=== PATIENT | female | born 1960 | race Caucasian/White ===

== ENCOUNTER 2019-11-01 07:18 | Outpatient (CLI) | payer BC, SELFPAY ==
[2019-11-01 07:37] LABS: Add Urine Microscopic? YES; Appearance Urine Clear (Clear); Basophils Absolute Auto 0.04 K/mm3 (0.00-0.10); Basophils Percent Auto 0.8 % (0.0-1.0); Bilirubin Urine Negative (Negative); Blood Urine Negative (Negative); Color Urine Yellow (Yellow); Glucose Urine UA Negative (Negative); Hematocrit 42.2 % (35.0-49.0); Hemoglobin 13.9 g/dL (12.0-15.0); Immature Granulocyte Absolute 0.01 K/mm3 (0.00-0.00); Immature Granulocyte Percent A 0.2 % (0.0-0.0); Ketones Urine Negative (Negative); Leukocyte Esterase Ur 1+ LEU/UL (Negative); Lymphocytes Absolute Auto 1.95 K/mm3 (1.10-4.50); Lymphocytes Percent Auto 38.1 % (18.0-42.0); Mean Corpuscular HGB Conc 32.9 g/dL (32.0-36.0); Mean Corpuscular Hemoglobin 30.8 pg (27.0-31.0); Mean Corpuscular Volume 93.4 fL (78.0-102.0); Mean Platelet Volume 9.7 fl (9.2-11.8); Monocytes Absolute Auto 0.51 K/mm3 (0.10-0.90); Neutrophils Absolute Auto 2.5 K/mm3 (1.7-7.2); Neutrophils Percent Auto 48.9 % (50.0-70.0); Nitrate Urine Negative (Negative); Platelet Count Result 239 K/mm3 (150-420); Protein Urine Negative (Negative); Red Blood Count 4.52 M/mm3 (4.20-5.40); Red Cell Distribution Width 12.6 % (11.6-14.4); Specific Grav Ur 1.015 (1.010-1.020); Urobilinogen Urine 0.2 mg/dL (0.2-1.0); White Blood Count 5.1 K/mm3 (4.8-10.8); pH Urine 6.5 (5.0-8.0)
[2019-11-01 07:47] LABS: Bacteria Urine None seen /hpf; RBC Urine 0-2 /hpf (0-2); Squamous Epithelial Cell Urine Occasional /hpf (Few)
[2019-11-01 08:35] LABS: Alanine Aminotransferase 20 U/L (14-59); Alkaline Phosphatase 64 U/L (46-116); Anion Gap 11.4 mmol/L (7-16); Aspartate Amino Transferase 19 U/L (15-37); Bilirubin,Total 0.5 mg/dL (0.00-1.00); Blood Urea Nitrogen 22 mg/dL (7-18); Carbon Dioxide 28 mmol/L (21-32); Chloride 104 mmol/L (98-108); Cholesterol 214 mg/dL (0-200); Estimated Glomerular Filt Rate 56; Glucose 95 mg/dL (70-99); HDL Direct 58 mg/dL (40-60); LDL Cholesterol Calculated 140 mg/dL (<130); Osmolality Calculated 291 mOsm/kg (285-295); Potassium 4.4 mmol/L (3.5-5.1); Sodium 139 mmol/L (136-145); Total Protein 6.8 g/dL (6.4-8.2); Triglycerides 79 mg/dL (0-150)
== END 2019-11-01 07:19 | disposition home or self-care (01) ==
PROVIDERS: PCP Internal Medicine; Visit Provider Internal Medicine
DX: E78.5 Hyperlipidemia, unspecified (principal); I10 Essential (primary) hypertension; E03.9 Hypothyroidism, unspecified; R82.90 Unspecified abnormal findings in urine
CPT/HCPCS: 36415; 80053; 80061; 81001; 84443; 85025; 87086

== ENCOUNTER 2020-03-06 16:31 | Outpatient (CLI) | payer BC, SELFPAY ==
[2020-03-06 17:28] LABS: SARS-CoV-2 Ag Negative (Negative)
== END 2020-03-06 16:32 | disposition home or self-care (01) ==
LOC: CHSLAB 16:34
PROVIDERS: PCP Internal Medicine; Visit Provider Internal Medicine
DX: Z20.828 Contact with and (suspected) exposure to other viral communicable diseases (principal)
CPT/HCPCS: 87426

== ENCOUNTER 2020-11-01 07:44 | Outpatient (CLI) | payer BC, SELFPAY ==
[2020-11-01 08:00] LABS: Basophils Absolute Auto 0.05 K/mm3 (0.00-0.10); Basophils Percent Auto 0.9 % (0.0-1.0); Eosinophils Absolute Auto 0.12 K/mm3 (0.02-0.50); Eosinophils Percent Auto 2.1 % (1.0-6.0); Hematocrit 44.3 % (35.0-49.0); Hemoglobin 14.2 g/dL (12.0-15.0); Lymphocytes Absolute Auto 2.37 K/mm3 (1.10-4.50); Lymphocytes Percent Auto 41.5 % (18.0-42.0); Mean Corpuscular HGB Conc 32.1 g/dL (32.0-36.0); Mean Corpuscular Hemoglobin 30.1 pg (27.0-31.0); Mean Corpuscular Volume 94.1 fL (78.0-102.0); Mean Platelet Volume 9.3 fl (9.2-11.8); Monocytes Absolute Auto 0.46 K/mm3 (0.10-0.90); Monocytes Percent Auto 8.1 % (2.0-11.0); Neutrophils Absolute Auto 2.7 K/mm3 (1.7-7.2); Neutrophils Percent Auto 47.4 % (50.0-70.0); Platelet Count Result 278 K/mm3 (150-420); Red Blood Count 4.71 M/mm3 (4.20-5.40); Red Cell Distribution Width 13.2 % (11.6-14.4); White Blood Count 5.7 K/mm3 (4.8-10.8)
[2020-11-01 08:53] LABS: Alanine Aminotransferase 27 U/L (14-59); Albumin Level 3.9 g/dL (3.4-5.0); Alkaline Phosphatase 64 U/L (46-116); Anion Gap 8 mmol/L (8-16); Aspartate Amino Transferase 18 U/L (15-37); Bilirubin,Total 0.4 mg/dL (0.00-1.00); Blood Urea Nitrogen 23 mg/dL (7-18); Calcium 8.9 mg/dL (8.5-10.1); Carbon Dioxide 28 mmol/L (21-32); Chloride 108 mmol/L (98-108); Cholesterol 215 mg/dL (0-200); Estimated Glomerular Filt Rate > 60; Glucose 91 mg/dL (70-99); HDL Direct 59 mg/dL (40-60); LDL Cholesterol Calculated 135 mg/dL (<130); Osmolality Calculated 301 mOsm/kg (285-295); Potassium 4.5 mmol/L (3.5-5.1); Sodium 144 mmol/L (136-145); Thyroid Stimulating Hormone 1.57 uIU/mL (0.36-3.74); Total Protein 6.6 g/dL (6.4-8.2); Triglycerides 105 mg/dL (0-150)
== END 2020-11-01 07:45 | disposition home or self-care (01) ==
LOC: CHSLAB 07:46
PROVIDERS: PCP Internal Medicine; Visit Provider Internal Medicine
DX: Z00.00 Encounter for general adult medical examination without abnormal findings (principal)
CPT/HCPCS: 36415; 80053; 80061; 84443; 85025

== ENCOUNTER 2020-11-15 15:53 | Outpatient (NON) | payer BC, SELFPAY ==
[2020-11-15 16:53] LABS: Add Urine Microscopic? YES; Appearance Urine Clear (Clear); Bilirubin Urine Negative (Negative); Blood Urine Negative (Negative); Color Urine Light Yellow (Yellow); Glucose Urine UA Negative (Negative); Ketones Urine Negative (Negative); Leukocyte Esterase Ur 1+ (Negative); Nitrate Urine Negative (Negative); Protein Urine Negative (Negative); Urobilinogen Urine 0.2 mg/dL (0.2-1.0); pH Urine 6.5 (5.0-8.0)
[2020-11-15 16:58] LABS: Bacteria Urine Trace /hpf; RBC Urine None seen /hpf (0-2); Squamous Epithelial Cell Urine Rare /hpf (Few)
== END 2020-11-15 15:54 | disposition home or self-care (01) ==
LOC: CHSLAB 15:55
PROVIDERS: PCP Internal Medicine; Visit Provider Internal Medicine
DX: Z00.00 Encounter for general adult medical examination without abnormal findings (principal)
CPT/HCPCS: 81001

== ENCOUNTER 2021-11-11 10:36 | Outpatient (CLI) | payer BC, SELFPAY ==
[2021-11-11 11:29] LABS: SARS-CoV-2 RNA PCR Negative (Negative)
== END 2021-11-11 10:37 | disposition home or self-care (01) ==
LOC: CHSLAB 10:38
PROVIDERS: PCP Internal Medicine; Visit Provider Internal Medicine
DX: J06.9 Acute upper respiratory infection, unspecified (principal); Z20.822 Contact with and (suspected) exposure to COVID-19
CPT/HCPCS: C9803; U0003; U0005

== ENCOUNTER 2021-12-31 16:37 | Outpatient (CLI) | payer BC, SELFPAY ==
[2021-12-31 18:06] LABS: SARS-CoV-2 RNA PCR Negative (Negative)
== END 2021-12-31 16:38 | disposition home or self-care (01) ==
LOC: CHSLAB 16:41
PROVIDERS: PCP Internal Medicine; Visit Provider Internal Medicine
DX: Z20.822 Contact with and (suspected) exposure to COVID-19 (principal)
CPT/HCPCS: C9803; U0003; U0005

== ENCOUNTER 2022-02-18 08:24 | Emergency (ER) | payer BC, SELFPAY ==
[2022-02-18 08:25] VITALS: BP 138/94; PULSE 96; RESP 20; TEMP 37.1; O2SAT 99
[2022-02-18] MEDS: ONDANSETRON INJ 4 MG/2 ML VIAL IV PUSH (08:30)
--- NOTE | 2022-02-18 08:35 | ED.DIZZY ---
HPI - Dizziness General Chief Complaint: Dizziness Stated Complaint: AMBULANCE Time Seen by Provider: 02/18/22 08:34 Source: patient, EMS and RN notes reviewed Mode of arrival: EMS History of Present Illness MD elicited complaint: dizziness Onset (ago): hour(s) (2) Timing: sudden onset Severity: moderate Description: room spinning Context: change in body position History of similar symptoms: No Exacerbating factors: movement/ambulation and change in body position Relieving factors: remaining still Associated symptoms: nausea Related Data Home Medications Medication Instructions Recorded Confirmed levothyroxine 100 mcg tablet 100 mcg PO DAILY 02/18/22 02/18/22 mirtazapine 15 mg tablet 15 mg PO PRN PRN Anxiety 02/18/22 02/18/22 verapamil 120 mg tablet,extended 120 mg PO DAILY 02/18/22 02/18/22 release Allergies Allergy/AdvReac Type Severity Reaction Status Date / Time meperidine AdvReac Severe N/V Verified 03/13/15 10:48 Review of Systems Review of Systems: All systems reviewed & are unremarkable except as noted in HPI and below PMFSH Past Medical History Medical History (Updated 02/18/22 @ 09:45 by Sohan Jain MD) Anxiety Hypertension Hypothyroidism Surgical History Surgical History (Updated 02/18/22 @ 08:40 by Sohan Jain MD) History of ankle surgery History of section History of thyroid surgery Social History Social History (Updated 02/18/22 @ 08:40 by Sohan Jain MD) Smoking status: Never smoker Exam Const: General: healthy appearing, no acute distress and alert Nutritional Appearance: well nourished Orientation/consciousness: patient oriented x3 Limitations: no limitations HENMT: Head: normal to inspection Face/Nose/Sinus: Normal external nose present Face and sinus: normal facial exam Eyes: Conjunctivae: conjunctivae normal Pupils: Equal, round and reactive pupils present EOM: EOMs intact bilaterally Neck: Neck: normal visual inspection Resp: Effort & Inspection: normal respiratory effort Auscultation: clear to auscultation bilaterally Cardio: Rate: regular rate Rhythm: regular rhythm GI: GI Palp: Yes Soft to palpation and No Tenderness to palpation present (GI) Auscultation: normal bowel sounds Back/Spine/Pelvis: Cervical Spine: cervical ROM normal Thoracic/Lumbar Spine: thoraco-lumbar ROM normal Skin: General skin exam: normal color Wounds: no wounds Neuro: General: patient oriented x3, moves all extremities, no focal motor deficits and CN's II-XI intact bilaterally Speech: normal speech Gait exam (Neuro): Normal gait present Extrem: General: normal to inspection and no clubbing, cyanosis or edema Psych: Mental Status: mental status grossly normal Affect: normal affect Attitude: cooperative Course Course Emergency Course: Nausea is gone with Zofran and the dizziness is significantly improved with meclizine. Discharge Plan Discharge Clinical Impression: Benign paroxysmal positional vertigo Qualifiers: Laterality: unspecified laterality Qualified Code(s): H81.10 - Benign paroxysmal vertigo, unspecified ear Patient Disposition: Home, Self-Care Condition: Improved Instructions: Benign Paroxysmal Positional Vertigo (ED) Prescriptions: New meclizine 25 mg tablet 25 mg PO TID PRN (Reason: dizziness) Qty: 30 0RF ondansetron HCl 4 mg tablet 4 mg PO DAILY PRN (Reason: nausea and vomiting) Qty: 10 0RF No Action verapamil 120 mg tablet extended release 120 mg PO DAILY levothyroxine 100 mcg tablet 100 mcg PO DAILY mirtazapine 15 mg tablet 15 mg PO PRN PRN (Reason: Anxiety) Follow-up/Referrals: Angel Weeks MD [Primary Care Provider] - Time of Disposition: 09:46
[2022-02-18] MEDS: MECLIZINE HCL 25 MG TABLET PO (08:39)
[2022-02-18 10:00] VITALS: BP 150/89; PULSE 98; RESP 18; TEMP 36.9; O2SAT 98
== END 2022-02-18 10:10 | disposition home or self-care (01) ==
PROVIDERS: Emergency Provider Emergency Medicine; PCP Internal Medicine
DX: H81.10 Benign paroxysmal vertigo, unspecified ear (principal)
CPT/HCPCS: 96374; 99284; A9270; J2405

== ENCOUNTER 2022-02-24 16:24 | Emergency (ER) | payer BC, SELFPAY ==
--- NOTE | ~2022-02-24 | CT_ITS ---
EXAMINATION: CT abdomen pelvis wo con DATE: 02/24/2022 17:01 INDICATION: Blood in stool. TECHNIQUE: Computed tomography (CT) of the abdomen and pelvis was performed without intravenous contr ast. Automated exposure control and iterative reconstruction technique were employed. The dose-length product was 504.18 mGy-cm. COMPARISON: None. FINDINGS: The visualized portions of the lung bases demonstrate mild atelectasis. No pleural effusion . The heart size is normal. No pericardial effusion. The liver, gallbladder, spleen, pancreas, adrena l glands, and kidneys are normal. There is no urolithiasis. There is fat stranding and wall thickenin g at the splenic flexure of the colon, consistent with colitis. The appendix is normal. There are no dilated loops of bowel. There are no pathologically enlarged lymph nodes. There is no free intraperit gray fluid. There is moderate lower lumbar spondylosis. IMPRESSION: 1. Colitis at the splenic flexure of the colon. Reviewed, dictated and finalized at location A. [employer]
[2022-02-24 16:25] VITALS: BP 184/97; PULSE 104; RESP 18; TEMP 37; O2SAT 98
--- NOTE | 2022-02-24 16:50 | ED.ABDPAIN ---
HPI - Abdominal Pain General Chief Complaint: Abdominal Pain Stated Complaint: Dr Weeks sent pt over she has Black Stool Time Seen by Provider: 02/24/22 16:26 Source: patient and RN notes reviewed Mode of arrival: ambulatory Limitations: no limitations History of Present Illness HPI narrative: pt has no acute sxs except the dark stool passage x 4 days. Pertinent past history: none Onset (ago): day(s) (4) Pain Consistency: other (pain-free) Pain scale (0-10): 0 Exacerbating factors: nothing Relieving factors: nothing Associated symptoms: denies other symptoms Related Data Patient : No Home Medications Medication Instructions Recorded Confirmed levothyroxine 100 mcg tablet 100 mcg PO DAILY 02/18/22 02/24/22 mirtazapine 15 mg tablet 15 mg PO PRN PRN Anxiety 02/18/22 02/24/22 verapamil 120 mg tablet,extended 120 mg PO DAILY 02/18/22 02/24/22 release Allergies Allergy/AdvReac Type Severity Reaction Status Date / Time meperidine AdvReac Severe N/V Verified 02/24/22 16:48 Review of Systems Review of Systems: All systems reviewed & are unremarkable except as noted in HPI and below Constitutional: Constitutional: Reports no additional constitutional complaints Eyes: Eyes: Reports no additional eye complaints ENT: Reports system reviewed and no additional complaints, except as documented Cardiovascular: Cardiovascular: Reports no additional cardiovascular complaints Respiratory: Respiratory: Reports no additional respiratory complaints Gastrointestinal: Gastrointestinal: Reports no additional gastrointestinal complaints Comments: black stools. Genitourinary: Genitourinary: Reports no additional female genitourinary complaints Musculoskeletal: Musculoskeletal: Reports no additional musculoskeletal complaints Integumentary/Breasts: Skin/Breast: Reports system reviewed and no additional complaints, except as docu Neurologic: Reports system reviewed and no additional complaints, except as documented Psychiatric: Psychiatric: Reports no additional psychiatric complaints Endocrine: Endocrine: Reports no additional endocrine complaints Hematologic/Lymphatic: Hematologic/Lymphatic: Reports no additional hematologic/lymphatic complaints Allergic/Immunologic: Allergic/Immunologic: Reports no additional allergic/immunologic complaints PMFSH Past Medical History Medical History Anxiety Black stools Hypertension Hypothyroidism Surgical History Surgical History History of ankle surgery History of section History of thyroid surgery Social History Social History Smoking status: Never smoker Exam Const: General: healthy appearing, no acute distress and well nourished Nutritional Appearance: well nourished Orientation/consciousness: patient oriented x3 Limitations: no limitations HENMT: Head: normal to inspection Ears: external ears normal, TM's normal bilaterally and EAC's normal Face/Nose/Sinus: Normal external nose present, Normal nares present, normal facial exam and sinuses nontender Face and sinus: normal facial exam and sinuses nontender Mouth: Yes Normal oral and palatal mucosa present and Yes moist mucous membranes Teeth and gingiva: dentition normal Throat: posterior oropharynx normal Eyes: Conjunctivae: conjunctivae normal Pupils: Equal, round and reactive pupils present EOM: EOMs intact bilaterally Neck: Neck: normal visual inspection, no lymphadenopathy and no meningeal signs Chest: Chest palpation & inspection: normal inspection of the chest Resp: Effort & Inspection: normal respiratory effort Auscultation: clear to auscultation bilaterally Cardio: Rate: regular rate Rhythm: regular rhythm GI: GI Palp: Yes Soft to palpation and No Tenderness to palpation present (GI) Auscultation: normal kathleen
[2022-02-24 17:01] LABS: Occult Blood Negative (Negative)
[2022-02-24 17:17] LABS: Basophils Absolute Auto 0.05 K/mm3 (0.00-0.10); Basophils Percent Auto 0.7 % (0.0-1.0); Hematocrit 41.4 % (35.0-49.0); Hemoglobin 13.8 g/dL (12.0-15.0); Immature Granulocyte Absolute 0.01 K/mm3 (0.00-0.00); Immature Granulocyte Percent A 0.1 % (0.0-0.0); Lymphocytes Absolute Auto 2.05 K/mm3 (1.10-4.50); Lymphocytes Percent Auto 28.6 % (18.0-42.0); Mean Corpuscular HGB Conc 33.3 g/dL (32.0-36.0); Mean Corpuscular Hemoglobin 30.6 pg (27.0-31.0); Mean Corpuscular Volume 91.8 fL (78.0-102.0); Mean Platelet Volume 9.4 fl (9.2-11.8); Monocytes Absolute Auto 0.62 K/mm3 (0.10-0.90); Monocytes Percent Auto 8.6 % (2.0-11.0); Neutrophils Absolute Auto 4.5 K/mm3 (1.7-7.2); Platelet Count Result 270 K/mm3 (150-420); Red Blood Count 4.51 M/mm3 (4.20-5.40); Red Cell Distribution Width 12.9 % (11.6-14.4); White Blood Count 7.2 K/mm3 (4.8-10.8)
[2022-02-24 17:30] LABS: Prothrombin Time 10.8 Seconds (9.50-12.10)
--- NOTE | 2022-02-24 17:34 | PC.NURSE ---
IV AND MEDICATIONS HELD DUE TO PT DENYING ANY COMPLAINTS AT THIS TIME. PT WAS AMBULATORY TO RR WITHOUT DISTRESS. PT IS AWAITING RESULTS AT THIS TIME. NAD NOTED. PT DENIES ANY NEEDS OR COMPLAINTS. WILL CONTINUE TO MONITOR.
[2022-02-24 17:35] LABS: Alanine Aminotransferase 29 U/L (14-59); Albumin Level 4.2 g/dL (3.4-5.0); Alkaline Phosphatase 73 U/L (46-116); Anion Gap 9 mmol/L (8-16); Aspartate Amino Transferase 21 U/L (15-37); Bilirubin,Total 0.5 mg/dL (0.00-1.00); Blood Urea Nitrogen 22 mg/dL (7-18); Carbon Dioxide 27 mmol/L (21-32); Chloride 106 mmol/L (98-108); Estimated CRCL calculation 42 ml/min; Estimated Glomerular Filt Rate 42; Glucose 105 mg/dL (70-99); Osmolality Calculated 297 mOsm/kg (285-295); Potassium 3.7 mmol/L (3.5-5.1); Sodium 142 mmol/L (136-145); Total Protein 7.7 g/dL (6.4-8.2)
[2022-02-24 17:38] LABS: Appearance Urine Clear (Clear); Bilirubin Urine Negative (Negative); Blood Urine Negative (Negative); Glucose Urine UA Negative (Negative); Ketones Urine Negative (Negative); Leukocyte Esterase Ur Trace (Negative); Nitrate Urine Negative (Negative); Protein Urine Negative (Negative); Specific Grav Ur 1.015 (1.010-1.020); Urobilinogen Urine 0.2 mg/dL (0.2-1.0)
[2022-02-24 17:39] VITALS: BP 176/100; PULSE 100; RESP 16; O2SAT 98
[2022-02-24 17:52] LABS: Add Urine Microscopic? YES; Bacteria Urine Trace /hpf; Color Urine Light Yellow (Yellow); RBC Urine 0-2 /hpf (0-2); Squamous Epithelial Cell Urine Rare /hpf (Few); WBC Urine 0-3 /hpf (0-3)
[2022-02-24] MEDS: metroNIDAZOLE 250 MG TABLET 500 MG PO (17:58)
[2022-02-24] MEDS: SODIUM CHLORIDE 0.9% IV 500 ML 999 ML IV CONT (18:01)
[2022-02-24] MEDS: PANTOPRAZOLE SODIUM IV 40 MG VIAL IV PUSH (18:03)
[2022-02-24 18:09] LABS: Lactic Acid Reflex 1.2 mmol/L (0.4-2.0)
--- NOTE | 2022-02-24 18:14 | PC.NURSE ---
PT IS LYING ON STRETCHER WITH IVF INFUSING ORDERED WITHOUT DIFFICULTY. AT BEDSIDE. NAD NOTED. WILL CONTINUE TO MONITOR. ICE WATER PROVIDED.
[2022-02-24 18:32] VITALS: BP 153/98; PULSE 88; RESP 16; TEMP 36.7; O2SAT 98
== END 2022-02-24 18:35 | disposition home or self-care (01) ==
PROVIDERS: Emergency Provider Emergency Medicine; PCP Internal Medicine
DX: K52.9 Noninfective gastroenteritis and colitis, unspecified (principal); R19.5 Other fecal abnormalities
CPT/HCPCS: 36415; 74176; 80053; 81001; 82272; 83605; 85025; 85610; 96365; 96375; 99284; A9270; C9113; J0696; J7040

== ENCOUNTER 2022-04-21 07:53 | Day surgery (SDC) | payer BC, SELFPAY ==
[2022-03-24 14:27] VITALS: BMI 27.4
[2022-04-06 13:48] VITALS: BMI 27.4
[2022-04-21 08:13] VITALS: BP 151/93; PULSE 92; RESP 17; TEMP 36.6; O2SAT 98
[2022-04-21] MEDS: LACTATED RINGERS 1,000 ML 150 ML IV CONT (08:23)
--- NOTE | 2022-04-21 08:28 | P.PNAN_ITS ---
Anes - Initial Pre Proc Eval Procedure: Operation Date: 04/21/22 09:30 Proposed Procedures p Esophagogastroduodenoscopy & Colonoscopy - Sohan Giang MD Date/Time: 04/21/22 08:28 Surgeon: Sohan Giang MD Pre Op Diagnosis: constipation, abnormal CT, melena Patient Data Age: 61 Gender: F Height: 1.73 m Weight: 83 kg Last Vital Signs Temp 97.8 F 04/21/22 08:13 Pulse 92 04/21/22 08:13 Resp 17 04/21/22 08:13 BP 151/93 H 04/21/22 08:13 Pulse Ox 98 04/21/22 08:13 O2 Del Method Room Air 04/21/22 08:13 Allergies Allergy/AdvReac Type Severity Reaction Status Date / Time meperidine AdvReac Severe N/V Verified 04/21/22 08:09 Home Medications Medication Instructions Recorded Confirmed Type levothyroxine 100 mcg tablet 100 mcg PO DAILY 02/18/22 04/06/22 History mirtazapine 15 mg tablet 15 mg PO PRN PRN Anxiety 02/18/22 04/06/22 History verapamil 120 mg tablet,extended 120 mg PO DAILY 02/18/22 04/06/22 History release acetaminophen 325 mg capsule 650 mg PO Q8H PRN pain #20 caps 02/24/22 04/06/22 Rx (Tylenol) Patient hx anesthesia problems: none Family hx anesthesia problems: none Results Review: All pre-operative results and documents have been reviewed as part of the pre- operative evaluation. [facility] Past Medical History Medical History (Updated 03/18/22 @ 08:53 by Lauren Navarrete APRN) Abnormal digestive system diagnostic imaging Anxiety Black stools Hx of colonic polyps Hypertension Hypertension Hypothyroidism Surgical History Surgical History History of ankle surgery History of section History of thyroid surgery Social History Social History Smoking status: Never smoker Alcohol intake: current Drinks per week: 2 Substance use: never Substance use type: does not use Living arrangements: with family Spiritual care concerns: No Anes - Eval Final PreProcedure Day of Procedure 04/21/22 08:28 Patient weight: normal Heart: regular rate and rhythm Lungs: clear to auscultation Airway: Mallampati scale class II Neurological: alert and oriented Last oral intake: >/= 8 hours ASA classification: II Emergent: no Anesthetic plan: proceed Anesthesia type and monitoring: general GIVS and standard monitoring Results Review: All pre-operative results and documents have been reviewed as part of the pre- operative evaluation. Informed Consent: The patient's anesthetic plan and its attendant risks and benefits were discussed with the patient/family/POA. Questions were solicited and answers provided to the satisfaction of the patient/family/POA.
--- NOTE | 2022-04-21 08:46 | PM.HPGS ---
History of Present Illness History of Present Illness Consent: Risks, benefits, and alternatives have been discussed and questions answered. Patient agrees to proceed with procedure. Chief complaint: constipation, abnormal CT, melena Narrative: Felecia Pavon is a 61 year old female Presents for colonoscopy an EGD. Patient has a history of passing black stools for several days. This prompted concern and she was sent to the emergency room where a routine screening colonoscopy was performed. CBC was normal stool is guaiac was negative. CT scan suggested possible colitis near the splenic flexure. Patient denies abdominal pain. She has had no diarrhea. No bleeding has been evident. Patient now referred for colonoscopy in EGD. Because of this concern of black stools that is now resolved. Patient does report constipation since being in the emergency room. No change in medications were described. She has implemented no specific therapy at this point. Patient may have had a colon polyp elsewhere many years ago. Most recent Previous colonoscopy 2014 was unremarkable. Review of Systems Review of Systems: review of systems noncontributory. [facility] Past Medical History Medical History (Updated 03/18/22 @ 08:53 by Lauren Navarrete APRN) Abnormal digestive system diagnostic imaging Anxiety Black stools Hx of colonic polyps Hypertension Hypertension Hypothyroidism Surgical History Surgical History History of ankle surgery History of section History of thyroid surgery Social History Social History Smoking status: Never smoker Alcohol intake: current Drinks per week: 2 Substance use: never Substance use type: does not use Living arrangements: with family Spiritual care concerns: No Meds Home Medications and Allergies Home Medications Medication Instructions Recorded Confirmed Type levothyroxine 100 mcg tablet 100 mcg PO DAILY 02/18/22 04/06/22 History mirtazapine 15 mg tablet 15 mg PO PRN PRN Anxiety 02/18/22 04/06/22 History verapamil 120 mg tablet,extended 120 mg PO DAILY 02/18/22 04/06/22 History release acetaminophen 325 mg capsule 650 mg PO Q8H PRN pain #20 caps 02/24/22 04/06/22 Rx (Tylenol) Allergies Allergy/AdvReac Type Severity Reaction Status Date / Time meperidine AdvReac Severe N/V Verified 04/21/22 08:09 Vital Signs Vital Signs - 24 hr 04/21/22 08:13 Temperature 97.8 F Pulse Rate 92 Respiratory Rate 17 Blood Pressure 151/93 H Pulse Oximetry 98 Oxygen Delivery Room Air Exam Narrative: Physical exam reveals patient to be alert. Vital signs stable. HEENT exam is unremarkable. Patient is anicteric. Lungs are clear to auscultation and percussion. Heart is without murmur or extra sounds. Abdomen bowel sounds are present soft nontender with no hepatosplenomegaly. Digital external rectal exam is normal. Assessment and Plan Assessment and plan (1) Abnormal digestive system diagnostic imaging: Code(s): R93.3 - Abnormal findings on diagnostic imaging of other parts of digestive tract Status: Acute Assessment and Plan: Patient had CT scan done in the emergency room raising this question of colitis localized splenic flexure. Patient has no symptoms to support this. Colonoscopy will be performed. She does have a very distant history of colon polyps as well. (2) Black stools: Code(s): K92.1 - Melena Status: Acute Assessment and Plan: Patient briefly had black stools however her stool Hemoccult was negative in CBC is normal. EGD is requested to exclude any upper GI source of blood loss.
--- NOTE | 2022-04-21 09:30 | SUR.OPER ---
EGD start 929 end 930 Colonoscopy start 935 end 950.
[2022-04-21 09:58] VITALS: BP 116/79; PULSE 68; RESP 17; O2SAT 95
[2022-04-21 10:08] VITALS: BP 133/86; PULSE 57; RESP 19; O2SAT 97
[2022-04-21 10:18] VITALS: BP 147/91; PULSE 55; RESP 17; O2SAT 99
== END 2022-04-21 10:26 | disposition home or self-care (01) ==
PROVIDERS: PCP Internal Medicine; Visit Provider Internal Medicine Gastroenterology
PROC: 0DJ08ZZ Inspection of Upper Intestinal Tract, Via Natural or Artificial Opening Endoscopic (ICD-10-PCS; CPT 43235; principal; 2022-04-21 09:30)
DX: Z12.11 Encounter for screening for malignant neoplasm of colon (principal); K64.8 Other hemorrhoids; I10 Essential (primary) hypertension; E03.9 Hypothyroidism, unspecified; F41.9 Anxiety disorder, unspecified
CPT/HCPCS: 45378; 43235; J2704; J7120

== ENCOUNTER 2022-08-27 15:38 | Outpatient (CLI) | payer BC, SELFPAY ==
--- NOTE | ~2022-08-27 | XR_ITS ---
EXAMINATION: XR ankle RT min 3V DATE: 08/27/2022 15:53 INDICATION: Right ankle pain. TECHNIQUE: 3 views of right ankle were obtained. COMPARISON: None. FINDINGS: Bone alignment is normal. There is a nondisplaced avulsion fracture of distal tip of fibula . Joint spaces are normal. There are enthesophytes at the posterior and plantar aspects of calcaneal tuberosity. Ankle soft tissue swelling is noted. IMPRESSION: 1. Nondisplaced avulsion fracture of distal tip of fibula. Reviewed, dictated and finalized at location E.
== END 2022-08-27 15:39 | disposition home or self-care (01) ==
LOC: CHSIMG 15:40
PROVIDERS: PCP Internal Medicine; Visit Provider Nurse Practitioner Family
DX: S82.831A Other fracture of upper and lower end of right fibula, initial encounter for closed fracture (principal); M25.571 Pain in right ankle and joints of right foot
CPT/HCPCS: 73610

== ENCOUNTER 2022-09-04 08:18 | Outpatient (CLI) | payer BC, SELFPAY ==
--- NOTE | ~2022-09-04 | DEXA_ITS ---
Bone Density Report Name: TOD DANIEL Age: 62 Sex: Female Ethnicity: White Date of : 1960 Indication: postmenopausal; screening for osteoporosis; hysterectomy; Referring Provider: Angel Weeks Study: Bone densitometry was performed. Exam Date: September 04, 2022 Accession number: [id number] Bone Density: Region BMD T-score Z-score Classification AP Spine(L1-L4) 0.630 -3.8 -2.2 Osteoporosis Femoral Neck (Left) 0.563 -2.6 -1.2 Osteoporosis Total Hip (Left) 0.657 -2.3 -1.3 Osteopenia Femoral Neck (Right) 0.587 -2.4 -1.0 Osteopenia Total Hip (Right) 0.673 -2.2 -1.1 Osteopenia Femoral Neck Mean 0.575 -2.5 -1.1 Osteoporosis Total Hip Mean 0.665 -2.3 -1.2 Osteopenia World Health Organization criteria for BMD impression classify patients as: Normal (T-score at or above -1.0), Osteopenia (T-score between -1.0 and -2.5), or Osteoporosis (T-score at or below -2.5). 10-year Fracture Risk: FRAX not reported because: Some T-score for Spine Total or Hip Total or Femoral Neck at or below -2.5 Clinical Information Provided by Patient: Has used the following medications: Vitamin D, multivitiman Has the following medical conditions: Hysterectomy Patient maximum height was 68 Menopause Age: 35 No regular weight bearing exercise Drinks caffeinated beverages Onset of menses at age 12 Number of children 3 Impression: The patient has osteoporosis, based on the Total Spine T-score. Discussion: HIGH RISK OF FRACTURE. BONE DENSITY IS UNDESIRABLY LOW AT ONE OR MORE SKELETAL SITES, CONSISTENT WITH OSTEOPOROSIS. ALSO, BONE DENSITY IS LOWER THAN EXPECTED FOR AGE AND SEX AT ONE OR MORE SKELETAL SITES; RECOMMEND A DILIGENT SEARCH FOR SECONDARY CAUSES OF BONE LOSS. This patient's lowest T-score meets the World Health Organization's (WHO) criteria for osteoporosis at one or more sites (T-score -2.5 or below). In untreated patients, the risk of osteoporotic fracture increases approximately two-fold for each 1.0 SD decrease in T-score. Low bone density is not the only risk factor for fracture; also consider factors such as patient's age, frailty or poor health, risk of falling, risk of injury, previous osteoporotic fracture, family history of osteoporosis, cigarette smoking, low body weight, etc. Not everyone with low bone mineral density has osteoporosis; osteomalacia and other metabolic bone disorders should also be considered. Patients who have osteoporosis should be evaluated for specific diseases and conditions (secondary causes) that may cause or contribute to bone loss. The [place] [employer] Endocrinologists (AACE) and National Osteoporosis Foundation (NOF) recommend pharmacologic intervention for all postmenopausal women whose T-score is in this range. Also, this patient's bone mineral density is below the range considered normal for healthy age-, sex-, and race-matched
== END 2022-09-04 08:19 | disposition home or self-care (01) ==
LOC: CHSIMG 08:19
PROVIDERS: PCP Internal Medicine; Visit Provider Nurse Practitioner Family
DX: Z78.0 Asymptomatic menopausal state (principal); M81.0 Age-related osteoporosis without current pathological fracture; M85.89 Other specified disorders of bone density and structure, multiple sites
CPT/HCPCS: 77080

== ENCOUNTER 2022-09-11 13:59 | Outpatient (CLI) | payer BC, SELFPAY ==
[2022-09-16 20:06] LABS: Vitamin D 25 Hydroxy 19 ng/mL (30-100)
== END 2022-09-11 14:00 | disposition home or self-care (01) ==
LOC: CHSLAB 14:01
PROVIDERS: PCP Internal Medicine; Visit Provider Nurse Practitioner Family
DX: E55.9 Vitamin D deficiency, unspecified (principal)
CPT/HCPCS: 36415; 82306

== ENCOUNTER 2022-09-23 11:36 | Outpatient (CLI) | payer BC, SELFPAY ==
--- NOTE | ~2022-09-23 | XR_ITS ---
Right ankle Technique: AP, oblique, and lateral views were obtained. Clinical History: Fracture follow-up COMPARISON: 08/27/2022 Findings: Minimally displaced fracture the distal tip of the lateral malleolus again noted, probable mild interval healing from prior exam. No other fracture or dislocation seen.. Ankle mortise and othe r visualized joint spaces are preserved. Stable diffuse soft tissue edema. Impression: Mild interval healing of fracture the distal tip of the lateral malleolus as compared to prior exam. Reviewed, dictated and finalized at location . Impression: Mild interval healing of fracture the distal tip of the lateral malleolus as co mpared to prior exam.
== END 2022-09-23 11:37 | disposition home or self-care (01) ==
LOC: CHSIMG 11:40
PROVIDERS: PCP Internal Medicine; Visit Provider Nurse Practitioner Family
DX: S82.891D Other fracture of right lower leg, subsequent encounter for closed fracture with routine healing (principal)
CPT/HCPCS: 73610

== ENCOUNTER 2023-05-24 10:29 | Outpatient (CLI) | payer BC, SELFPAY ==
[2023-05-24 10:43] LABS: Appearance Urine Clear (Clear); Basophils Absolute Auto 0.05 K/mm3 (0.00-0.10); Basophils Percent Auto 0.8 % (0.0-1.0); Bilirubin Urine Negative (Negative); Blood Urine Negative (Negative); Color Urine Light Yellow (Yellow); Eosinophils Absolute Auto 0.14 K/mm3 (0.02-0.50); Eosinophils Percent Auto 2.2 % (1.0-6.0); Glucose Urine UA Negative (Negative); Hematocrit 42.6 % (35.0-49.0); Hemoglobin 13.9 g/dL (12.0-15.0); Immature Granulocyte Absolute 0.02 K/mm3 (0.00-0.00); Immature Granulocyte Percent A 0.3 % (0.0-0.0); Ketones Urine Negative (Negative); Leukocyte Esterase Ur 1+ (Negative); Lymphocytes Absolute Auto 2.41 K/mm3 (1.10-4.50); Lymphocytes Percent Auto 37.5 % (18.0-42.0); Mean Corpuscular HGB Conc 32.6 g/dL (32.0-36.0); Mean Corpuscular Hemoglobin 29.5 pg (27.0-31.0); Mean Corpuscular Volume 90.4 fL (78.0-102.0); Mean Platelet Volume 9.2 fl (9.2-11.8); Monocytes Absolute Auto 0.55 K/mm3 (0.10-0.90); Monocytes Percent Auto 8.6 % (2.0-11.0); Neutrophils Absolute Auto 3.3 K/mm3 (1.7-7.2); Neutrophils Percent Auto 50.6 % (50.0-70.0); Nitrate Urine Positive (Negative); Platelet Count Result 285 K/mm3 (150-420); Protein Urine Negative (Negative); Red Blood Count 4.71 M/mm3 (4.20-5.40); Red Cell Distribution Width 13.2 % (11.6-14.4); Specific Grav Ur 1.025 (1.010-1.020); Urobilinogen Urine 0.2 mg/dL (0.2-1.0); White Blood Count 6.4 K/mm3 (4.8-10.8); pH Urine 5.5 (5.0-8.0)
[2023-05-24 10:51] LABS: Add Urine Microscopic? YES
[2023-05-24 10:52] LABS: Bacteria Urine 3+ /hpf; RBC Urine None seen /hpf (0-2); Squamous Epithelial Cell Urine Rare /hpf (Few)
[2023-05-24 11:30] LABS: Alanine Aminotransferase 21 U/L (14-59); Alkaline Phosphatase 75 U/L (46-116); Anion Gap 10 mmol/L (8-16); Aspartate Amino Transferase 16 U/L (15-37); Bilirubin,Total 0.7 mg/dL (0.00-1.00); Blood Urea Nitrogen 28 mg/dL (7-18); Calcium 9.2 mg/dL (8.5-10.1); Carbon Dioxide 26 mmol/L (21-32); Chloride 104 mmol/L (98-108); Cholesterol 252 mg/dL (0-200); Estimated Glomerular Filt Rate 46; Glucose 102 mg/dL (70-99); HDL Direct 60 mg/dL (40-60); LDL Cholesterol Calculated 171 mg/dL (<130); Osmolality Calculated 295 mOsm/kg (285-295); Potassium 4.2 mmol/L (3.5-5.1); Sodium 140 mmol/L (136-145); Thyroid Stimulating Hormone 0.65 uIU/mL (0.36-3.74); Total Protein 7.2 g/dL (6.4-8.2); Triglycerides 106 mg/dL (0-150)
== END 2023-05-24 10:30 | disposition home or self-care (01) ==
LOC: CHSLAB 10:31
PROVIDERS: PCP Internal Medicine; Visit Provider Internal Medicine
DX: Z00.00 Encounter for general adult medical examination without abnormal findings (principal); I10 Essential (primary) hypertension; E03.9 Hypothyroidism, unspecified
CPT/HCPCS: 36415; 80053; 80061; 81001; 84443; 85025

== ENCOUNTER 2024-01-20 07:25 | Outpatient (CLI) | payer BC, SELFPAY ==
[2024-01-20 07:43] LABS: Basophils Absolute Auto 0.04 K/mm3 (0.00-0.10); Basophils Percent Auto 0.8 % (0.0-1.0); Eosinophils Absolute Auto 0.07 K/mm3 (0.02-0.50); Eosinophils Percent Auto 1.4 % (1.0-6.0); Hematocrit 40.5 % (35.0-49.0); Hemoglobin 13.5 g/dL (12.0-15.0); Immature Granulocyte Absolute 0.01 K/mm3 (0.00-0.00); Immature Granulocyte Percent A 0.2 % (0.0-0.0); Lymphocytes Absolute Auto 2.16 K/mm3 (1.10-4.50); Lymphocytes Percent Auto 42.7 % (18.0-42.0); Mean Corpuscular HGB Conc 33.3 g/dL (32-36); Mean Corpuscular Hemoglobin 30.7 pg (27.0-31.0); Monocytes Absolute Auto 0.42 K/mm3 (0.10-0.90); Monocytes Percent Auto 8.3 % (2.0-11.0); Neutrophils Absolute Auto 2.36 K/mm3 (1.70-7.20); Neutrophils Percent Auto 46.6 % (50.0-70.0); Platelet Count Result 248 K/mm3 (150-420); Red Cell Distribution Width 12.9 % (11.6-14.4); White Blood Count 5.1 K/mm3 (4.8-10.8)
[2024-01-20 07:59] LABS: Hemoglobin A1C 5.2 % (<5.7)
[2024-01-20 08:38] LABS: Alanine Aminotransferase 22 U/L (14-59); Albumin Level 3.8 g/dL (3.4-5.0); Alkaline Phosphatase 69 U/L (46-116); Anion Gap 8 mmol/L (4-12); Aspartate Amino Transferase 12 U/L (15-37); Bilirubin,Total 0.6 mg/dL (0.00-1.00); Blood Urea Nitrogen 21 mg/dL (7-18); Calcium 8.9 mg/dL (8.5-10.1); Carbon Dioxide 29 mmol/L (21-32); Chloride 105 mmol/L (98-108); Cholesterol 232 mg/dL (0-200); Estimated Glomerular Filt Rate 44; Free T4 Free Thyroxine 1.26 ng/dL (0.76-1.46); Glucose 92 mg/dL (70-99); HDL Direct 55 mg/dL (40-60); LDL Cholesterol Calculated 163 mg/dL (<130); Osmolality Calculated 297 mOsm/kg (285-295); Potassium 4.4 mmol/L (3.5-5.1); Sodium 142 mmol/L (136-145); Thyroid Stimulating Hormone 1.32 uIU/mL (0.36-3.74); Total Protein 6.7 g/dL (6.4-8.2); Triglycerides 69 mg/dL (0-150)
== END 2024-01-20 07:26 | disposition home or self-care (01) ==
LOC: CHSLAB 07:28
PROVIDERS: PCP Internal Medicine; Visit Provider Nurse Practitioner Family
DX: E78.5 Hyperlipidemia, unspecified (principal); I10 Essential (primary) hypertension; R73.01 Impaired fasting glucose
CPT/HCPCS: 36415; 80053; 80061; 83036; 84439; 84443; 85025

== ENCOUNTER 2024-09-01 10:10 | Outpatient (CLI) | payer BC, SELFPAY ==
--- OUTSIDE RECORDS SUMMARY | 2024-09-01 10:18 | XMS_ITS | Clinical Summary ---
Author Organization [facility] Address [address] [place] [address] Care Team Providers Care Mortgage Loan Interviewer Name Role Phone Angel Weeks MD Primary Care Provider [phone] Allergies Active Allergy Reactions Criticality Noted Date Comments Meperidine Other (See comments) Low 11/07/2016 Medications levothyroxine (SYNTHROID, LEVOTHROID) 100 mcg tablet TK 1 T PO D 0 09/13/2018 Active Active Problems No known active problems Encounters Date Type Department Care Team Description 07/12/2024 7:04 AM CDT - 07/12/2024 11:59 PM CDT Hospital Encounter [facility] - Imaging [address] [place] [address] Screening mammogram, encounter for Discharge Disposition: Discharge to home or self care from Last 3 Months Surgical History Surgery Date Site/Laterality Comments ANKLE FRACTURE SURGERY SECTION Medical History Medical History Date Comments Tinnitus Thyroid disease Migraines Family History Medical History Relation Name Comments Heart disease Other Hypertension Other Lung disease Other Relation Name Status Comments Other Social History Tobacco Use Types Packs/Day Years Used Date Smoking Tobacco: Never Smokeless Tobacco: Never Alcohol Use Standard Drinks/Week Comments Yes 0 (1 standard drink = 0.6 oz pur e alcohol) ocassionally Comments No Sex and Gender Information Value Date Recorded Sex Assigned at Not on file 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 Gender Identity Not on file Sexual Orientation Not on file Obstetrics History Para Term AB IAB SAB Ectopic Multiple Livin g Live Births 3 Date Outcome GA Total Labor Labor/2nd/3rd Weight Sex Type Anes PTL Irma A1 A5 Name Clin Last Filed Vital Signs Vital Sign Reading Time Taken Comments Blood Pressure 143/92 01/05/2019 7:53 AM CDT Pulse 66 01/05/2019 7:53 AM CDT Temperature - - Respiratory Rate - - Oxygen Saturation - - Inhaled Oxygen Concentration - - Weight 77.6 kg (171 lb) 01/05/2019 7:53 AM CDT Height 172.7 cm (5' 8 ) 01/05/2019 7:53 AM CDT Body Mass Index 26 01/05/2019 7:53 AM CDT Plan of Treatment Health Maintenance Due Date Last Done Comments Colon Cancer Screening-Colonoscopy 1960 Depression Screening 1960 Hepatitis C Screening 1960 Hepatitis B Screening 1978 Regular Well Visit/Exam 18-64 1978 Zoster Vaccine (1 of 2) 2010 DTaP/Tdap/Td Vaccine (2 - Td or Tdap) 07/30/2024 07/30/2014 Influenza Vaccine (Season Ended) 2024 Breast Cancer Screening-Mammogram 07/12/2025 07/12/2024, 06/16/2023, 04/22/2022, Additional history exists Pneumococcal vaccine <65 Aged Out No longer eligible based on patient's age to complete this topic Procedures Procedure Name Priority Date/Time Associated Diagnosis Comments SCREENING MAMMOGRAM BILATERAL W RICHY Schedule Routine, Read Routine (OP Routine) 07/12/2024 7:15 AM CDT Screening mammogram, encounter for from Last 3 Months Results * Screening Mammogram Bilateral W Richy (07/12/2024 7:15 AM CDT) Anatomical Region Laterality Modality Breast Bilateral Mammography Narrative 07/12/2024 9:35 AM CDT Examination: Screening Mammogram Bilateral W Richy: 07/12/24 Prior Study Comparisons: Relevant prior studies available at the time of interpretation were reviewed. Findings: Bilateral There is no suspicious mass, calcification, or architectural distortion in either breast. The patient will be notified of results by letter. There are scattered areas of fibroglandular density. Impression: BI-RADS ATLAS category (overall): 1 - Negative Overall Assessment: 1 - Negative Recommendation: - Routine Screening Mammogram in 1 Yr for both breasts. us Self Screening Mammogram IMG MAMMO PROCEDURES Fi nal Result from Last 3 Months Insurance [facility] CHOICE PLUS [employer] CHOICE [employer] OOS [employer] OOS [employer] OOS Care Teams Mortgage Loan Interviewer Relationship Specialty Start Date End Date Angel Weeks MD PCP - General 06/24/16
--- OUTSIDE RECORDS SUMMARY | 2024-09-01 10:18 | XMS_ITS | Referral Summary ---
Author Organization [facility] Address [address] [place] [address] Care Team Providers Care Photo Graphics Librarian Name Role Phone Angel Weeks MD Primary Care Provider [phone] Encounters Date Type Department Care Team Description 07/12/2024 7:04 AM CDT - 07/12/2024 11:59 PM CDT Hospital Encounter [facility] - Imaging [address] [place] [address] Screening mammogram, encounter for Discharge Disposition: Discharge to home or self care from Last 3 Months Allergies Active Allergy Reactions Criticality Noted Date Comments Meperidine Other (See comments) Low 11/07/2016 Medications levothyroxine (SYNTHROID, LEVOTHROID) 100 mcg tablet TK 1 T PO D 0 09/13/2018 Active Active Problems No known active problems Social History Tobacco Use Types Packs/Day Years Used Date Smoking Tobacco: Never Smokeless Tobacco: Never Alcohol Use Standard Drinks/Week Comments Yes 0 (1 standard drink = 0.6 oz pur e alcohol) ocassionally Comments No Sex and Gender Information Value Date Recorded Sex Assigned at Not on file Legal Sex Female 7:16 PM LEAD ENGINEER Gender Identity Not on file Sexual Orientation Not on file Last Filed Vital Signs Vital Sign Reading [...] 01/05/2019 7:53 AM CDT Plan of Treatment Not on file Procedures Procedure Name Priority Date/Time Associated Diagnosis [...] nal Result from Last 3 Months Insurance [facility] CHOICE PLUS [address] ACCESS CHOICE Glad to Have You OOS Glad to Have You OOS Glad to Have You OOS Care Teams Photo Graphics Librarian Relationship Specialty Start Date End Date Angel Weeks MD PCP - General 06/24/16
--- OUTSIDE RECORDS SUMMARY | 2024-09-01 10:18 | XMS_ITS | Encounter Summary ---
Author Organization [facility] Address [address] [place] [address] Care Team Providers Care Spot Welder Body Assembly Name Role Phone Angel Weeks MD Primary Care Provider [phone] Encounter Details Date Type Department Care Team (Late Contact Info) Description 08/02/2024 Results Follow-Up [facility] - ACCOUNT SOLUTIONS ANALYST [address], [facility] [address] [place] [address] Mercedez Villa APRN-ELECTRONIC TECHNICIAN [address] [facility] [address] [place] [address] Social History Tobacco Use Types Packs/Day Years Used Date Smoking Tobacco: Never Passive Smoke Exposure: Never Smokeless Tobacco: Never Alcohol Use Standard Drinks/Week Comments Yes 0 (1 standard drink = 0.6 oz pur e alcohol) PHQ-2 Answer Date Recorded Patient Health Questionnaire-2 Score 0 07/28/2024 Comments No Sex and Gender Information Value Date Recorded Sex Assigned at Female 07/28/2024 3:46 AM CDT Legal Sex Female 11:15 AM CDT Gender Identity Female 07/28/2024 3:46 AM CDT Sexual Orientation Not on file documented as of this encounter Plan of Treatment Upcoming Encounters Date Type Department Care Team (Late Contact Info) Description 10/30/2024 8:30 AM CDT Office Visit [facility] - ACCOUNT SOLUTIONS ANALYST [address] [facility] [address] [place] [address] Mercedez Villa, REMOTE MORTGAGE UNDERWRITER-ELECTRONIC TECHNICIAN [address] [address] documented as of this encounter Visit Diagnoses Not on filedocumented in this encounter Care Teams Spot Welder Body Assembly Relationship Specialty Start Date End Date Angel Weeks MD [address] [id number] PCP - General Internal Medicine 05/15/24 documented as of this encounter
--- OUTSIDE RECORDS SUMMARY | 2024-09-01 10:18 | XMS_ITS | Clinical Summary ---
Author Organization [facility] Address [address] [place] [address] Care Team Providers Care Meteorological Engineer Name Role Phone Angel Weeks MD Primary Care Provider [phone] Source Comments [facility] and Associated Physician Practices is amultiple site organization consisting of ambulatory clinics and hospital sitesin [place], [place], [place] and [place]. This disclosure is being madepursuant to the Care Everywhere program and may not contain all information available regarding this patient. Last updated 18.[facility] Allergies Active Allergy Reactions Criticality Noted Date Comments Meperidine GI Discomfort,Vomiting Low 11/07/2016 Medications * Be aware that medications may not be up to date on this document. Alwaysverify current medications with the patient. levothyroxine (Synthroid) 100 MCG tablet Take 1 (one) tablet by mouth once daily Active verapamil CR (Isoptin-SR) 120 MG tablet Take 1 (one) tablet by mouth at bedtime 5 Active pravastatin (Pravachol) 20 MG tablet Take 1 (one) tablet by mouth Active Cholecalcifero l (vitamin D3) 1.25 MG (85997 UT) capsule Take 1 (one) capsule by mouth once Active Magnesium 100 MG Active [place]-3 Fatty Acids (Fish Oil) 1200 MG Active Semaglutide(0. 25 or 0.5MG/DOS) 2 MG/3ML Solution Pen-injector Active clobetasol (Temovate) 0.05 % ointment 1 APPLIC TOPICALLY 2X WEEK 4 Active halobetasol (Ultravate) 0.05 % ointment Apply to affected area once daily Active triamcinolone acetonide (Kenalog) 0.1 % ointmentIndica tions:Lichen sclerosus Use to vulvar skin 2-3 times with the nystatin ointment 30 g 2 5 Active nystatin (Mycostatin) 035547 UNIT/GM ointmentIndica tions:Vulvar itching Use with the Triamcinolone ointment 0.1% to vulvar skin 2-3 times a week 30 g 2 5 Active Active Problems Problem Noted Date Diagnosed Date Lichen sclerosus 07/28/2021 Encounters Date Type Department Care Team Description 08/02/2024 Results Follow-Up [facility] - ASSOCIATE PROFESSOR OF VIOLIN [address], [facility] [address] [place] [address] Mercedez Villa APRN-CNP 07/28/2024 11:10 AM CDT Office Visit [facility] - ASSOCIATE PROFESSOR OF VIOLIN [address], [facility] [address] [place] [address] Mercedez Villa, HANDLING TECH-TOWN JUSTICE Lichen sclerosus (Primary Dx); Vulvar itching 07/28/2024 Travel from Last 3 Months Family History Medical History Relation Name Comments CAD (Coronary Artery Disease) Father COPD - Chronic Obstructive Pulmonary Disease Father Dementia Maternal Grandfather None Known Maternal Grandmother Cancer Mother vulvar with met s post radiation Osteoporosis Mother CAD (Coronary Artery Disease) Paternal Grandfather COPD - Chronic Obstructive Pulmonary Disease Paternal Grandfather None Known Paternal Grandmother Relation Name Status Comments Father Maternal Grandfather Maternal Grandmother Mother Paternal Grandfather Paternal Grandmother Social History Tobacco Use Types Packs/Day Years Used Date Smoking Tobacco: Never Passive Smoke Exposure: Never Smokeless Tobacco: Never Tobacco Cessation:Counseling Given: Not Answered Alcohol Use Standard Drinks/Week Comments Yes 0 (1 standard drink = 0.6 oz pur e alcohol) PHQ-2 Answer Date Recorded Patient Health Questionnaire-2 Score 0 07/28/2024 Comments No Sex and Gender Information Value Date Recorded Sex Assigned at Female 07/28/2024 3:46 AM CDT Legal Sex Female 11:15 AM CDT Gender Identity Female 07/28/2024 3:46 AM CDT Sexual Orientation Not on file Last Filed Vital Signs Vital Sign Reading Time Taken Comments Blood Pressure 128/82 07/28/2024 11:00 AM CDT Pulse 62 07/03/2020 6:15 PM CDT Temperature 36.6 C (97.9 F) 07/03/2020 6:15 PM CDT Respiratory Rate 20 07/03/2020 6:15 PM CDT Oxygen Saturation - - Inhaled Oxygen Concentration - - Weight 76.7 kg (169 lb) 07/28/2024 11:00 AM CDT Height - - Body Mass Index - - Plan of Treatment Upcoming Encounters Date Type Department Care Team (Late st Contact Info) Description 10/30/2024 8:30 AM CDT Office Visit [facility] - ASSOCIATE PROFESSOR OF VIOLIN [address] [place] [address] Mercedez Villa APRN-TOWN JUSTICE [address] [facility] [address] [place] [address] Health Maintenance Due Date Last Done Comments COLOGUARD (AGES 45-75) - COLON CA SCREENING 1960 COLON MONITORING 1960 COLONOSCOPY - COLON CA SCREENING 1960 CT COLONOGRAPHY - COLON CA SCREENING 1960 Colorectal Cancer Screening 1960 FIT - COLON CA SCREENING 1960 FLEX SIG - COLON CA SCREENING 1960 PAP SMEAR 1960 HIV SCREENING 08/23/1975 HEPATITIS C SCREENING 08/18/1978 DTAP/TDAP/TD VACCINES (1 - Tdap) 08/23/1979 PNEUMOCOCCAL VACCINE 50+ (1 of 1 - PCV) 2010 ZOSTER VACCINE (1 of 2) 2010 COVID-19 VACCINE (2 - season) 2023 06/20/2020 INFLUENZA VACCINE (Season Ended) 2024 MAMMOGRAM 07/12/2026 07/12/2024, 06/18, 06/16/2023, Additional history exists Respiratory Syncytial Virus (RSV) Vaccine Pt: or over 60 yrs (1 - 1-dose 75+ series) 08/23/2035 DEPRESSION SCREENING Completed 07/28/2024 HEPATITIS B VACCINE Aged Out No longe r eligible based on patient's age to complete this topic HIB VACCINE Aged Out No longer eligi ble based on patient's age to complete this topic HPV VACCINE Aged Out No longer eligi ble based on patient's age to complete this topic MENINGOCOCCAL (Group B) VACCINE SHARED DECISION-MAKING Aged Out No longer eligible based on patient's age to complete this topic MENINGOCOCCAL GROUPS A/C/Y/W VACCINE Aged Out No longer eligible based on patient's age to complete this topic Procedures Procedure Name Priority Date/Time Associated Diagnosis Comments CULTURE YEAST Routine 07/28/2024 Vulvar itching from Last 3 Months Results * CULTURE YEAST (07/28/2024) Culture Yeast with ID [facility] Comment: CULTURE, YEAST, W/IDENTIFICATION Micro Number: [id number] Test Status: Final Specimen Source: Vaginal Specimen Quality: Adequate Result: No yeast isolated Test Performed at: [id number] [id number] JOSE EDUARDO MALDONADO MD Microbiology ENTIRE VAGINA / Unknown 07/28/2024 07/29/2024 5:05 AM CDT Mercedez Villa HANDLING TECH-TOWN JUSTICE LAB - MICROBIOLOGY ORDERABLES Final Result [address] [address] from Last 3 Months Insurance STEVEN Care Teams Meteorological Engineer Relationship Specialty Start Date End Date Angel Weeks MD [address] [place] [address] PCP - General Internal Medicine 05/15/24
[2024-09-01 10:52] LABS: Basophils Absolute Auto 0.05 K/mm3 (0.00-0.10); Basophils Percent Auto 0.8 % (0.0-1.0); Eosinophils Absolute Auto 0.15 K/mm3 (0.02-0.50); Eosinophils Percent Auto 2.4 % (1.0-6.0); Hematocrit 42.5 % (35.0-49.0); Hemoglobin 13.9 g/dL (12.0-15.0); Immature Granulocyte Absolute 0.02 K/mm3 (0.00-0.00); Immature Granulocyte Percent A 0.3 % (0.0-0.0); Lymphocytes Absolute Auto 2.17 K/mm3 (1.10-4.50); Lymphocytes Percent Auto 34.4 % (18.0-42.0); Mean Corpuscular HGB Conc 32.7 g/dL (32-36); Mean Corpuscular Hemoglobin 30.1 pg (27.0-31.0); Mean Platelet Volume 9.6 fl (9.2-11.8); Monocytes Percent Auto 7.9 % (2.0-11.0); Neutrophils Absolute Auto 3.41 K/mm3 (1.70-7.20); Neutrophils Percent Auto 54.2 % (50.0-70.0); Platelet Count Result 283 K/mm3 (150-420); Red Blood Count 4.62 M/mm3 (4.20-5.40); Red Cell Distribution Width 13.1 % (11.6-14.4); White Blood Count 6.3 K/mm3 (4.8-10.8)
[2024-09-01 11:17] LABS: Albumin Level 4.5 g/dL (3.5-5.1); Anion Gap 7 mmol/L (4-12); Blood Urea Nitrogen 20 mg/dL (7-17); Calcium 9.4 mg/dL (8.4-10.2); Carbon Dioxide 25 mmol/L (22-30); Chloride 107 mmol/L (98-107); Cholesterol 210 mg/dL (0-200); Estimated Glomerular Filt Rate 55; Glucose 91 mg/dL (65-110); HDL Direct 69 mg/dL; LDL Cholesterol Calculated 125 mg/dL (<130); Osmolality Calculated 290 mOsm/kg (285-295); Potassium 4.4 mmol/L (3.4-5.0); Sodium 139 mmol/L (137-145); Triglycerides 81 mg/dL (<150)
[2024-09-01 11:45] LABS: Thyroid Stimulating Hormone Reflex 0.244 uIU/mL (0.465-4.68)
[2024-09-01 13:16] LABS: Free T4 Free Thyroxine Reflex 2.26 ng/dL (0.78-2.19)
[2024-09-03 05:39] LABS: Cortisol Random 10.9 mcg/dL; Vitamin D 25 Hydroxy 65 ng/mL (30-100)
[2024-09-03 07:24] LABS: Parathyroid Intact 40 pg/mL (16-77)
[2024-09-05 12:57] LABS: Tissue Transglutaminase IgA Ab <1.0 U/mL; Tissue Transglutaminase IgG Ab <1.0 U/mL
[2024-09-05 22:43] LABS: Immunofixation, Serum Normal pattern.
[2024-09-07 18:43] LABS: Protein, Total 6.9 g/dL (6.1-8.1)
[2024-09-09 14:28] LABS: Albumin 4.5 g/dL (3.8-4.8); Alpha 1 Globulin 0.3 g/dL (0.2-0.3); Alpha 2 Globulin 0.6 g/dL (0.5-0.9); Beta 1 Globulin 0.4 g/dL (0.4-0.6); Gamma Globulin 0.7 g/dL (0.8-1.7)
== END 2024-09-01 10:11 | disposition home or self-care (01) ==
LOC: CHSLAB 10:14
PROVIDERS: PCP Internal Medicine
DX: E78.5 Hyperlipidemia, unspecified (principal); I10 Essential (primary) hypertension; N18.2 Chronic kidney disease, stage 2 (mild); E03.9 Hypothyroidism, unspecified; M81.0 Age-related osteoporosis without current pathological fracture; Z98.890 Other specified postprocedural states
CPT/HCPCS: 36415; 80061; 80069; 82306; 82533; 83970; 84155; 84165; 84439; 84443; 85025; 86334; 86364

== ENCOUNTER 2024-09-04 07:03 | Outpatient (CLI) | payer BC, SELFPAY ==
--- OUTSIDE RECORDS SUMMARY | 2024-09-04 07:09 | XMS_ITS | Clinical Summary ---
Author Organization [facility] Address [address] [place] [address] Care Team Providers Care Microarray Specialist Name Role Phone Angel Weeks MD Primary Care Provider [phone] Source Comments [facility] and Associated Physician Practices is amultiple site organization consisting of ambulatory clinics and hospital sitesin [place], [place], [place]. This disclosure is being madepursuant to the Care Everywhere program and may not contain all information available regarding this patient. Last updated 18.[facility] Allergies Active Allergy Reactions Criticality Noted Date [...] Active Cholecalcifero l (vitamin D3) 1.25 MG (92014 UT) capsule Take 1 (one) capsule by mouth once Active Magnesium 100 MG Active [place]-3 Fatty Acids (Fish Oil) 1200 MG Active [...] 30 g 2 5 Active nystatin (Mycostatin) 076723 UNIT/GM ointmentIndica tions:Vulvar itching Use with the Triamcinolone ointment 0.1% to vulvar skin 2-3 times a week 30 g 2 5 Active Active Problems Problem Noted Date Diagnosed Date Lichen sclerosus 07/28/2021 Encounters Date Type Department Care Team Description 08/02/2024 Results Follow-Up [facility] - BUSINESS AND MARKETING TEACHER [address], [facility] [address] [place] [address] Mercedez Villa APRN-CNP 07/28/2024 11:10 AM CDT Office Visit [facility] - BUSINESS AND MARKETING TEACHER [address], [facility] [address] [place] [address] Mercedez Villa, CONSTRUCTION ADMINISTRATOR-CONCRETE MIXER TRUCK DRIVER Lichen sclerosus (Primary Dx); Vulvar itching 07/28/2024 [...] CDT Office Visit [facility] - BUSINESS AND MARKETING TEACHER [address] [place] [address] Mercedez Villa APRN-CONCRETE MIXER TRUCK DRIVER [address] [facility] [address] [place] [address] Health Maintenance Due Date Last [...] [facility] Comment: CULTURE, YEAST, W/IDENTIFICATION Micro Number: [id number] Test Status: Final Specimen Source: Vaginal Specimen Quality: Adequate Result: No yeast isolated Test Performed at: [id number] [id number] JOSE EDUARDO MALDONADO MD Microbiology ENTIRE VAGINA / Unknown 07/28/2024 07/29/2024 5:05 AM CDT Mercedez Villa CONSTRUCTION ADMINISTRATOR-CONCRETE MIXER TRUCK DRIVER LAB - MICROBIOLOGY ORDERABLES Final Result [address] [address] from Last 3 Months Insurance STEVEN Care Teams Microarray Specialist Relationship Specialty Start Date End Date Angel Weeks MD [address] [place] [address] PCP - General Internal Medicine 05/15/24
--- OUTSIDE RECORDS SUMMARY | 2024-09-04 07:09 | XMS_ITS | Encounter Summary ---
Author Organization [facility] Address [address] [place] [address] Care Team Providers Care Desizing Machine Back Tender Name Role Phone Angel Weeks MD Primary Care Provider [phone] Encounter Details Date Type Department Care Team (Late Contact Info) Description 08/02/2024 Results Follow-Up [facility] - INTERVENTIONAL RADIOLOGY TECHNOLOGIST [address], [facility] [address] [place] [address] Mercedez Villa APRN-PACKING LINE WORKER [address] [facility] [address] [place] [address] Social History Tobacco Use Types [...] CDT Office Visit [facility] - INTERVENTIONAL RADIOLOGY TECHNOLOGIST [address] [facility] [address] [place] [address] Mercedez Villa, INSTRUCTIONAL DESIGN CONSULTANT-PACKING LINE WORKER [address] [address] documented as of this encounter Visit Diagnoses Not on filedocumented in this encounter Care Teams Desizing Machine Back Tender Relationship Specialty Start Date End Date Angel Weeks MD [address] [id number] PCP - General Internal Medicine 05/15/24 documented as of this encounter
[2024-09-04 07:57] LABS: Creatinine 24 Hour Urine 1.16 g/24 hr (0.60-1.80); Total Volume 24 Hour Urine 2000 ml
[2024-09-06 17:17] LABS: Total Volume 2000
== END 2024-09-04 07:04 | disposition home or self-care (01) ==
LOC: CHSLAB 07:07
PROVIDERS: PCP Internal Medicine
DX: E03.9 Hypothyroidism, unspecified (principal); M81.0 Age-related osteoporosis without current pathological fracture; Z98.890 Other specified postprocedural states
CPT/HCPCS: 81050; 82340; 82570